=== PATIENT | male | born 2000 | race Hispanic/Latino ===

== ENCOUNTER 2022-07-08 22:42 | Emergency (ER) | payer OTHER ==
[~2022-07-08] VITALS: Ht 182.9 cm; Wt 140.6 kg
[2022-07-09 02:14] VITALS: BP 140/81
== END 2022-07-09 02:21 | disposition home or self-care (01) ==
LOC: EDH 22:42
DX: S93.401A Sprain of unspecified ligament of right ankle, initial encounter (principal); X50.1XXA Overexertion from prolonged static or awkward postures, initial encounter; Y93.89 Activity, other specified; Y92.89 Other specified places as the place of occurrence of the external cause; Y99.8 Other external cause status
CPT/HCPCS: 73610